=== PATIENT | male | born 1985 | race Hispanic/Latino ===

== ENCOUNTER → 2017-10-14 | Day surgery (SDC) | payer OTHER ==
[~2017-10-14] MED LIST: FENTANYL CITRATE/PF 100MCG/2 ML INJ ONE; MIDAZOLAM HCL 2 MG/2 ML VIAL ONE; NEXIUM PO; PENTASA500 MG PO; PROPOFOL IV EMULSION 10 MG/ML 50 ML VIAL ONE; TYLENOL 500 MG
--- NOTE | 2017-10-14 14:20 | Operative Report ---
DATE OF PROCEDURE: October 14, 2017 PROCEDURE PERFORMED: Esophagogastroduodenoscopy. INDICATIONS FOR EGD: Dysphagia to solids. MEDICATION: Patient was done under MAC. Please see anesthesiologist's note. PROCEDURE: With the patient in the left lateral decubitus position, the flexible fiberoptic Olympus gastroscope was introduced into the esophagus under direct visualization without any difficulty. There were some diffuse ulcerations noted in the distal esophagus. There was a mild stricture noted at the GE junction and that was dilated to a size 48-Honduran Hampton and biopsied. The scope was then advanced with ease into the stomach, traversing a large approximately 6-cm hiatal hernia. Mucosa overlying the antrum and the body revealed some patchy erythema and low-grade to moderate edema, and biopsies were obtained and sent to stain for H. pylori. Pylorus was of normal contour and shape. It was intubated with ease, and the scope was advanced all the way to the 2nd portion of the duodenum. The scope was then withdrawn slowly. Mucosa overlying the proximal 2nd portion and the duodenal bulb appeared to be within normal limits. The scope was then withdrawn back into the stomach and retroflexed. The mucosa overlying the fundus appeared to be within normal limits. The previously described hiatal hernia was also noted in the retroflexed position. The scope was then straightened out. It was subsequently withdrawn. Patient tolerated the procedure well. IMPRESSION 1. Ulcerated distal esophagus. 2. Stricture at gastroesophageal junction dilated to size 48-Honduran Hampton. 3. Approximately 6-cm hiatal hernia. 4. Gastritis, biopsied. Biopsies sent to stain for H. pylori. PLAN: Follow up histology. Initiate Protonix 40 mg 1 p.o. q.a.m. a.c. Job#: [id number]
== END | disposition home or self-care (01) ==
LOC: OR 08:46
PROVIDERS: ATTEND Internal Medicine Gastroenterology
DX: K22.2 Esophageal obstruction (principal); K29.70 Gastritis, unspecified, without bleeding; K22.10 Ulcer of esophagus without bleeding; K21.0 Gastro-esophageal reflux disease with esophagitis; K44.9 Diaphragmatic hernia without obstruction or gangrene; R03.0 Elevated blood-pressure reading, without diagnosis of hypertension; F17.210 Nicotine dependence, cigarettes, uncomplicated; Z68.32 Body mass index [BMI] 32.0-32.9, adult
CPT/HCPCS: 43239; 43450; J2250

== ENCOUNTER → 2017-12-23 | Outpatient (CLI) | payer OTHER ==
[~2017-12-23] MED LIST changes: -FENTANYL CITRATE/PF 100MCG/2 ML INJ ONE; -MIDAZOLAM HCL 2 MG/2 ML VIAL ONE; -PROPOFOL IV EMULSION 10 MG/ML 50 ML VIAL ONE; +SINCALIDE 3 MCG/VIAL INJ ONE
--- NOTE | 2017-12-23 14:08 | Diagnostic Imaging Report ---
PROCEDURE:US GALLBLADDER COMPARISON:CT, CT ABDOMEN/PELVIS W, 05/14/2016, 8:29. INDICATIONS:RUQ Pain FINDINGS: LIVER: Size:17.1 cm in the right mid clavicular line, mildly enlarged. Appearance:Increased echogenicity, smooth contour Mass:No focal masses GALLBLADDER: Stones/Sludge:None Appearance:No wall thickening, pericholecystic fluid or hydrops. Sonographic Roman's Sign:Negative BILE DUCTS: Intrahepatic Ducts:No dilation Extrahepatic Ducts:Common bile duct measures 0.4 cm, no dilatation. PANCREAS: Visualized portions of the neck and proximal body are normal. RIGHT KIDNEY: Size:9.9 cm in length Echogenicity:Normal Collecting System:No hydronephrosis Stone:None Cyst/Mass:None VESSELS: Aorta: Suboptimally visualized. Inferior Vena Cava:Suboptimally visualized. Main Portal Vein:1.2 cm, normal size with hepatopedal flow. FREE FLUID: No ascites or pleural effusions. CONCLUSION: Hepatic steatosis and mild hepatomegaly. Baron Lambert M.D. Dictated by: Baron Lambert M.D. on 12/23/2017 at 14:09 Electronically approved by: Baron Lambert M.D. on 12/23/2017 at 14:09
--- NOTE | 2017-12-23 19:20 | Diagnostic Imaging Report ---
Hepatobiliary Scan with Gallbladder Ejection Fraction Clinical information: 32 F with chronic RUQ abdominal pain x 1 year Technique: Following intravenous administration of 7 millicuries of Tc-99m mebrofenin, dynamic images of the abdomen in the anterior projection were obtained through 35 minutes. Sincalide (CCK analog) 2.8 micrograms was administered intravenously over 30 minutes with additional imaging for determination of gallbladder ejection fraction. Discussion: Perfusion of the liver is normal. Extraction of tracer by the liver parenchyma is normal. Tracer appears promptly within the biliary tract. The gallbladder begins to fill by 10 minutes post injection of tracer and fills adequately. Tracer is seen in the small bowel during the sincalide infusion. The gallbladder ejection fraction with sincalide is 7% (normal greater than 40%). Impression: 1. Filling of the gallbladder excludes acute cystic duct obstruction/acute cholecystitis. 2. The decreased gallbladder ejection fraction of 7% supports the clinical diagnosis of chronic cholecystitis/gallbladder dyskinesia. Signed by: Dr. Gregoria Copeland M.D. on 12/23/2017 7:16 PM
== END ==
LOC: US 12:52
PROVIDERS: ATTEND Internal Medicine Gastroenterology
DX: R10.11 Right upper quadrant pain (principal)
CPT/HCPCS: 76705; 78227; A9537; J2805

== ENCOUNTER → 2018-01-29 | Outpatient (CLI) | payer OTHER ==
[~2018-01-29] MED LIST changes: +DIATRIZOATE MEGL/DIATRIZOA SOD 30 ML BTL PO ONE; +IOPAMIDOL 370 MG/ML 200 ML INFUS..BTL INJ ONE; -SINCALIDE 3 MCG/VIAL INJ ONE; +SODIUM CHLORIDE 0.9% 50ML 50 ML ONE
[2018-01-29 13:39] LABS: ALANINE AMINOTRANSFERASE 21 IU/L (0-55); ALBUMIN 4.4 g/dL (3.5-5.0); ALBUMIN/GLOBULIN RATIO 1.5 (0.8-2.0); ALKALINE PHOSPHATASE 62 IU/L (40-150); ANION GAP 13.4 mmol/L (8-16); BLOOD UREA NITROGEN 16 mg/dL (7-26); BUN/CREATININE RATIO 13 (6-25); CALCIUM 9.8 mg/dL (8.4-10.2); CARBON DIOXIDE 27 mmol/L (22-29); CHLORIDE 105 mmol/L (98-107); CREATININE, SERUM 1.19 mg/dL (0.72-1.25); EST GLOMERULAR FILTRATION RATE > 60 ML/MIN (60-); GLUCOSE 87 mg/dL (74-118); POTASSIUM 4.4 mmol/L (3.5-5.1); SODIUM 141 mmol/L (136-145)
[2018-01-29 13:39] LABS: BASOPHILS # (AUTO) 0.1 (0.0-0.1); BASOPHILS % 1.8 % (0.0-1.0); EOSINOPHILS # (AUTO) 0.2 (0.0-0.4); EOSINOPHILS % 3.5 % (0.0-6.0); HEMATOCRIT 42.1 % (38.2-49.6); HEMOGLOBIN 14.4 g/dL (14.0-18.0); LYMPHOCYTES % 43.9 % (18.0-39.1); MEAN CORPUSCULAR HEMOGLOBIN 32.1 pg (28-32); MEAN CORPUSCULAR HGB CONC 34.2 g/dL (31-35); MONOCYTES # (AUTO) 0.6 (0.2-0.8); MONOCYTES % 8.1 % (4.4-11.3); NEUTROPHILS # (AUTO) 2.9 (2.1-6.9); NEUTROPHILS % 42.4 % (38.7-80.0); PLATELET COUNT 271 x10e3/uL (140-360); RED BLOOD COUNT 4.48 x10e6/uL (4.3-5.7); RED CELL DISTRIBUTION WIDTH 13.4 % (11.7-14.4)
--- NOTE | 2018-01-29 15:08 | Diagnostic Imaging Report ---
EXAM: CT Abdomen and Pelvis WITH contrast INDICATION: \[id number] \S\1410 \S\BILIARY DYSKINESA COMPARISON: CT dated 05/14/2016 TECHNIQUE: Abdomen and pelvis were scanned utilizing a multidetector helical scanner from the lung base to the pubic symphysis after administration of IV contrast. Coronal and sagittal reformations were obtained. Routine protocol was performed. Scan was performed when during portal venous phase. IV CONTRAST: 100 mL of Isovue-370 ORAL CONTRAST: Gastroview COMPLICATIONS: None RADIATION DOSE: Total DLP: 767.36 mGy*cm Estimated effective dose: (DLP x 0.015 x size factor) mSv CTDIvol has been reviewed. It is below the limits set by the Radiation Protocol Committee (RPC). FINDINGS: LINES and TUBES: None. LOWER THORAX: Unremarkable. Mild dependent atelectasis. HEPATOBILIARY: No focal hepatic lesions. No biliary ductal dilation. GALLBLADDER: No radio-opaque stones or sludge. No wall thickening. SPLEEN: No splenomegaly. PANCREAS: No focal masses or ductal dilatation. ADRENALS: No adrenal nodules KIDNEYS/URETERS: Kidneys enhance symmetrically. No hydronephrosis. No cystic or solid mass lesions. No stones. GI TRACT: No abnormal distention, wall thickening, or evidence of bowel obstruction. Appendix is normal. Small hiatal hernia. PELVIC ORGANS/BLADDER: Unremarkable. LYMPH NODES: Increased number of subcentimeter right lower quadrant mesenteric lymph nodes, measuring up to 0.9 cm (series 301, image 54). Nonspecific 1.1 cm gastrohepatic lymph node (series 2, image 21). VESSELS: Unremarkable. PERITONEUM / RETROPERITONEUM: No free air or fluid. BONES: Unremarkable. SOFT TISSUES: Unremarkable. IMPRESSION: 1. Increased number of subcentimeter right lower quadrant mesenteric lymph nodes, suspicious for mesenteric adenitis in the appropriate clinical setting. Otherwise, no acute inflammatory process in the abdomen/pelvis. 2. Normal appendix. 3. Small hiatal hernia. Signed by: Dr. Frankie Singh MD on 01/29/2018 3:04 PM
== END ==
LOC: CT 12:45
PROVIDERS: ATTEND Surgery
DX: K82.8 Other specified diseases of gallbladder (principal)
CPT/HCPCS: 36415; 74177; 80053; 85025; 93005; Q9967

== ENCOUNTER → 2018-01-31 | Day surgery (SDC) | payer OTHER ==
[~2018-01-31] MED LIST changes: +BUPIVACAINE 0.25%/EPI 30ML SDV INJ ONE; +DEXAMETHASONE SOD PHOS INJ 4 MG/ML VIAL ONE; -DIATRIZOATE MEGL/DIATRIZOA SOD 30 ML BTL PO ONE; +FENTANYL CITRATE/PF 100MCG/2 ML INJ ONE; +GLYCOPYRROLATE INJ 1MG/ 5 ML SYR ONE; +HYDROCODONE/APAP 7.5MG-325MG 1 EA TAB ONE; -IOPAMIDOL 370 MG/ML 200 ML INFUS..BTL INJ ONE; +LIDOCAINE HCL 2% LOCAL INJ 5 ML SDV VIAL INJ ONE; +MIDAZOLAM HCL 2 MG/2 ML VIAL ONE; +NEOSTIGMINE 5 MG/5ML SYR ONE; +ONDANSETRON HCL INJ 2 MG/ML VIAL ONE; +PROPOFOL IV EMULSION 10 MG/ML 20 ML VIAL ONE; +ROCURONIUM BROMIDE 10 MG/ML 5ML VIAL ONE; +SEVOFLURANE INHAL SOLN 250 ML PEN BTL ONE; -SODIUM CHLORIDE 0.9% 50ML 50 ML ONE
--- OUTSIDE RECORDS SUMMARY | 2018-01-31 06:34 | XMS REPORT ---
Author Author [facility] Organization [facility] Address Unknown Phone Unavailable Care Team Providers Care Tool Profiling Machine Set Up Operator Name Role Phone ERMELINDA MIXON Unavailable Unavailable NIRU REY Unavailable Unavailable Problems This patient has no known problems. Allergies, Adverse Reactions, Alerts This patient has no known allergies or adverse reactions. Medications This patient has no known medications. Results Test Description Test Time Test Comments Text Results Atomic Results Result Comments CT ABDOMEN/PELVIS W 2018-01-29 14:56:00 [place] [address] Patient Name: SHARI ROCHE MR #: [id number] : 1985 Age/Sex: 32/M Req #: [id number] Adm Physician: Ordered by: ERMELINDA MIXON MD Report #: [id number] Location: CT Room/Bed: Procedure: [id number] CT/CT ABDOMEN/PELVIS W Exam Date: Exam Time: 1410 REPORT STATUS: Signed EXAM: CT Abdomen and Pelvis WITH contrast INDICATION: COMPARISON: CT dated 05/14/2016 TECHNIQUE: Abdomen and pelvis were scanned utilizing a multidetector helical scanner from the lung base to the pubic symphysis after administration of IV contrast. Coronal and sagittal reformations were obtained. Routine protocol was performed. Scan was performed when during portal venous phase. IV CONTRAST: 100 mL of Isovue-370 ORAL CONTRAST: Gastroview COMPLICATIONS: None RADIATION DOSE: Total DLP: 767.36 mGy*cm Estimated effective dose: (DLP x 0.015 x size factor) mSv CTDIvol has been reviewed. It is below the limits set by the Radiation Protocol Committee (RPC) . FINDINGS: LINES and TUBES: None. LOWER THORAX: Unremarkable. Mild dependent atelectasis. HEPATOBILIARY: No focal hepatic lesions. No biliary ductal dilation. GALLBLADDER: No radio-opaque stones or sludge. No wall thickening. SPLEEN: No splenomegaly. PANCREAS: No focal masses or ductal dilatation. ADRENALS: No adrenal nodules KIDNEYS/URETERS: Kidneys enhance symmetrically. No hydronephrosis. No cystic or solid mass lesions. No stones. GI TRACT: No abnormal distention, wall thickening, or evidence of bowel obstruction. Appendix is normal. Small hiatal hernia. PELVIC ORGANS/BLADDER: Unremarkable. LYMPH NODES: Increased number of subcentimeter right lower quadrant mesenteric lymph nodes , measuring up to 0.9 cm (series 301, image 54). Nonspecific 1.1 cm gastrohepatic lymph node (series 2, image 21). VESSELS: Unremarkable. PERITONEUM / RETROPERITONEUM: No free air or fluid. BONES: Unremarkable. SOFT TISSUES: Unremarkable. IMPRESSION: 1. Increased number of subcentimeter right lower quadrant mesenteric lymph nodes, suspicious for mesenteric adenitis in the appropriate clinical setting. Otherwise, no acute inflammatory process in the abdomen/pelvis. 2. Normal appendix. 3. Small hiatal hernia. Signed by: Dr. Frankie Bird MD on 01/29/2018 3:04 PM Dictated By: FRANKIE BIRD MD [id number] Transcribed By: ANSHU on 01/29/18 150 COPY TO: ERMELINDA MIXON MD HEPTOBILIARY W PHARM [place] [address] Patient Name: SHARI ROCHE MR #: [id number] : 1985 Age/Sex: 32/M Req #: [id number] Adm Physician: Ordered by: NIRU REY MD Report #: [id number] Location: US Room/Bed: Procedure: [id number] NM/HEPTOBILIARY W PHARM Exam Date: 12/23/17 Exam Time: 1345 REPORT STATUS: Signed Hepatobiliary Scan with Gallbladder Ejection Fraction Clinical information: 32 F with chronic RUQ abdominal pain x 1 year Technique: Following intravenous administration of 7 millicuries of Tc-99m mebrofenin, dynamic images of the abdomen in the anterior projection were obtained through 35 minutes. Sincalide (CCK analog) 2.8 micrograms was administered intravenously over 30 minutes with additional imaging for determination of gallbladder ejection fraction. Discussion: Perfusion of the liver is normal. Extraction of tracer by the liver parenchyma is normal. Tracer appears promptly within the biliary tract. The gallbladder begins to fill by 10 minutes post injection of tracer and fills adequately. Tracer is seen in the small bowel during the sincalide infusion. The gallbladder ejection fraction with sincalide is 7% ( normal greater than 40%). Impression: 1. Filling of the gallbladder excludes acute cystic duct obstruction/acute cholecystitis. 2. The decreased gallbladder ejection fraction of 7% supports the clinical diagnosis of chronic cholecystitis/gallbladder dyskinesia. Signed by: Dr. Yovany Copeland M.D. on 12/23/2017 7:16 PM Dictated By: YOVANY COPELAND MD 15 Transcribed By: ANSHU on 12/23/171915 COPY TO: NIRU REY MD [place] [address] Patient Name: SHARI ROCHE MR #: [id number] : 1985 Age/Sex: 32/M Req #: [id number] Adm Physician: Ordered by: NIRU REY MD Report #: [id number] Location: US Room/Bed: Procedure: [id number] US/US GALLBLADDER Exam Date: Exam Time: REPORT STATUS: Signed PROCEDURE: US GALLBLADDER COMPARISON: CT, CT ABDOMEN/PELVIS W, 05/14/2016, 8:29. INDICATIONS: RUQ Pain FINDINGS: LIVER: Size: 17.1 cm in the right mid clavicular line, mildly enlarged. Appearance: Increased echogenicity, smooth contour Mass: No focal masses GALLBLADDER: Stones/Sludge: None Appearance: No wall thickening, pericholecystic fluid or hydrops. Sonographic Roman's Sign: Negative BILE DUCTS: Intrahepatic Ducts: No dilation Extrahepatic Ducts: Common bile duct measures 0.4 cm, no dilatation. PANCREAS: Visualized portions of the neck and proximal body are normal. RIGHT KIDNEY: Size: 9.9 cm in length Echogenicity: Normal Collecting System: No hydronephrosis Stone: None Cyst/Mass: None VESSELS: Aorta: Suboptimally visualized. Inferior Vena Cava: Suboptimally visualized. Main Portal Vein: 1.2 cm, normal size with hepatopedal flow. FREE FLUID: No ascites or pleural effusions. CONCLUSION: Hepatic steatosis and mild hepatomegaly. Baron Cedeno M.D. Dictated by: Baron Cedeno M.D. on 2017 at 14:09 Electronically approved by: Baron Cedeno M.D. on 12/23/2017 at 14:09 Dictated By: PAYAM CEDENO MD, MD 08 Transcribed By : SIVAKUMAR on 12/23/171408 COPY TO: NIRU REY MD
--- NOTE | 2018-01-31 11:20 | Operative Report ---
DATE OF PROCEDURE: January 31, 2018 PREOPERATIVE DIAGNOSIS: Biliary dyskinesia, right upper quadrant pain. POSTOPERATIVE DIAGNOSIS: Biliary dyskinesia, right upper quadrant pain. PROCEDURE PERFORMED: Laparoscopic cholecystectomy. ANESTHESIA: General endotracheal. HEAD SUGAR REPROCESS OPERATOR: FRANCISCO JAVIER Hunter ESTIMATED BLOOD LOSS: Minimal. DRAINS: None. COMPLICATIONS: None. INDICATIONS AND FINDINGS: This patient is a 32-year-old male who complains of epigastric pain and right upper quadrant pain for several weeks. He had no gallstones but an abnormal EF of 7% by HIDA scan. The pain is associated with fatty food intolerance. He has a history of hiatal hernia and reflux. Recent EGD revealed that. Preoperatively, the patient had a CT scan of the abdomen that revealed no acute process. INTRAOPERATIVE FINDINGS: No cholelithiasis. The gallbladder contained multiple adhesions of the peritoneal fat and peritoneum and omentum to it. There were significant inflammatory changes and adhesions covering the gallbladder, but all of those were flimsy. The cystic duct was identified, and it was not dilated. All of this is consistent with biliary dyskinesia and chronic acalculous cholecystitis. The liver did now show any evidence of cirrhosis or fatty liver infiltration. DESCRIPTION OF PROCEDURE: With the patient lying on the operative table in the supine position, after administration of general anesthesia, he was prepped and draped for laparoscopic cholecystectomy. The procedure was begun by establishing a pneumoperitoneum in the umbilical site after a stab wound was made in that location and the saline drop test was performed. Pneumoperitoneum was insufflated to 15 mm of pressure. Then the 10-11 trocar was placed in that location. The patient was then rotated to the left and with the head up, and we placed a 10-mm subxiphoid port. Finally, we placed 2 lateral working ports, 5 mm each, in the right mid-clavicular line and right anterior axillary line. The gallbladder was retracted cephalad using grasping forceps through the two 5-mm trocars, and then we began the dissection. The gallbladder was covered with some omentum and flimsy adhesions in its entirety. We lysed those until we were able to expose the wall of the gallbladder. As previously stated, the gallbladder was entirely covered by the adhesions. The gallbladder was also rather long. We continued the dissection until we cleared the gallbladder and identified the cystic duct as well as the junction with the common bile duct. At this point, the cystic duct was found to be nondilated. We then clipped the cystic duct distally 3 times and once proximal and then transected it. Then the cystic artery was transected between titanium clips also. Then we took the gallbladder down from the liver bed using electrocautery dissection. The gallbladder was detached and removed through the umbilical port. We inspected the operative field. There was no bleeding coming from the gallbladder bed fossa. At this point then, we released the pneumoperitoneum after aspirating all the fluid from the right upper quadrant and gallbladder bed fossa. We then closed the wounds using #0 Vicryl for the umbilical fascia, 3-0 Vicryl for the subcutaneous tissue in that location as well as the subxiphoid port, and the skin of all the ports was closed using leroy. Marcaine 0.25% with epinephrine was given as local block at the end of the case in all the port sites. The patient tolerated the procedure well and was taken to the recovery room in stable condition. Job#: [id number]
== END | disposition home or self-care (01) ==
LOC: OR 06:31
PROVIDERS: ATTEND Surgery
DX: K81.1 Chronic cholecystitis (principal); K82.8 Other specified diseases of gallbladder; K21.9 Gastro-esophageal reflux disease without esophagitis; K58.9 Irritable bowel syndrome, unspecified; Z87.891 Personal history of nicotine dependence
CPT/HCPCS: 47562; 88304; C1766; J1100; J2001; J2250; J2405; J3490

== ENCOUNTER → 2019-01-14 | Day surgery (SDC) | payer OTHER ==
[~2019-01-14] MED LIST changes: -BUPIVACAINE 0.25%/EPI 30ML SDV INJ ONE; -DEXAMETHASONE SOD PHOS INJ 4 MG/ML VIAL ONE; -GLYCOPYRROLATE INJ 1MG/ 5 ML SYR ONE; -HYDROCODONE/APAP 7.5MG-325MG 1 EA TAB ONE; +HYOSCYAMINE SULFATE 0.5 MG/ML INJ ONE; -LIDOCAINE HCL 2% LOCAL INJ 5 ML SDV VIAL INJ ONE; +METOCLOPRAMIDE HCL 10 MG/2ML VIAL ONE; -NEOSTIGMINE 5 MG/5ML SYR ONE; -ONDANSETRON HCL INJ 2 MG/ML VIAL ONE; +PANTOPRAZOLE SO40 MG PO; -PROPOFOL IV EMULSION 10 MG/ML 20 ML VIAL ONE; +PROPOFOL IV EMULSION 10 MG/ML 50 ML VIAL ONE; -ROCURONIUM BROMIDE 10 MG/ML 5ML VIAL ONE; -SEVOFLURANE INHAL SOLN 250 ML PEN BTL ONE
--- OUTSIDE RECORDS SUMMARY | 2019-01-14 06:13 | XMS REPORT | Clinical Summary ---
Author Author [facility] Organization [facility] Address Unknown Phone Unavailable Care Team Providers Care Production Assistant Name Role Phone Asked, No Pcp PCP Unavailable Allergies No Known Allergies Medications End Date Status Medication Sig Dispensed Refills Start Date 09/27/2018 cyclobenzaprine Take 1-2 10 tablet 0 (FLEXERIL) 5 mg tablet tablets (5-10 9 mg total) by mouth 2 (two) times a day as needed for muscle spasms (chest wall strain) for up to 5 days. Active Problems Not on file Encounters Care Team Description Date Type Specialty Ej Alfaro MD Left-sided chest wall pain (Primary Dx) 09/22/2018 Emergency Emergency Medicine after 01/13/2018 Social History Date Tobacco Use Types Packs/Day Years Used Never Assessed Sex Assigned at Date Recorded Not on file Industry Job Start Date Occupation Not on file Not on file Not on file Travel End Travel History Travel Start No recent travel history available. Last Filed Vital Signs Time Taken Vital Sign Reading 09/22/2018 3:35 PM [employer] [facility] Blood Pressure 138/77 09/22/2018 3:35 PM [employer] Pulse 86 09/22/2018 11:40 AM [employer] Temperature 37.1 C (98.8 F) 09/22/2018 3:35 PM [employer] Respiratory Rate 19 09/22/2018 3:35 PM [employer] Oxygen Saturation 99% - Inhaled Oxygen - Concentration - Weight - - Height - - Body Mass Index - Plan of Treatment Health Maintenance Due Date Last Done Comments INFLUENZA VACCINE 03/26/2019 Procedures Comments Procedure Name Priority Date/Time Associated Diagnosis XR CHEST 2 VW STAT 09/22/2018 3:13 PM [employer] ESTIMATED GFR STAT 09/22/2018 11:44 AM [employer] B NATRIURETIC PEPTIDE STAT 09/22/2018 11:44 AM [employer] TROPONIN STAT 09/22/2018 11:44 AM [employer] COMPREHENSIVE METABOLIC STAT 09/22/2018 PANEL 11:44 AM [employer] HC COMPLETE BLD COUNT STAT 09/22/2018 W/AUTO DIFF 11:44 AM [employer] ECG 12-LEAD STAT 09/22/2018 11:27 AM [employer] after 01/13/2018 Results * XR Chest 2 Vw (09/22/2018 3:13 PM [employer]) Specimen Narrative Performed At EXAMINATION: XR CHEST 2 VW RADIANT INDICATION: Chest painacutenonspecificlow prob CAD COMPARISON: None IMPRESSION: Low lung volumes. No pulmonary edema or acute airspace disease. No pleural effusion or pneumothorax. Normal cardiomediastinal silhouette. Right upper quadrant surgical clips. [id number] Procedure Note Hm Interface, Radiology Results Incoming - 09/22/2018 3:26 PM [employer] EXAMINATION: XR CHEST 2 VW INDICATION: Chest pain acute nonspecific low prob CAD COMPARISON: None IMPRESSION: Low lung volumes. No pulmonary edema or acute airspace disease. No pleural effusion or pneumothorax. Normal cardiomediastinal silhouette. Right upper quadrant surgical clips. [facility]-[id number] Performing Organization Address City/[facility]/Zipcode Phone Number [employer] [address] [place] [phone] * Estimated GFR (09/22/2018 11:44 AM [employer]) Estimated GFR 81 mL/min/1.73 m2 [facility] Comment: [facility] rpretation G1 >=90 Normal or high G2 60-89Mildly decreased [id number] Mildly to moderately decreased [id number] Moderately to severely decreased G4 15-29Severely decreased G5 <15Kidney failure The eGFR was calculated using the Chronic Kidney Disease Epidemiology Collaboration (CKD-EPI) equation. Interpretation is based on recommendations of the National Kidney Foundation-Kidney Disease Outcomes Quality Initiative (NKF-KDOQI) published in 2014. Specimen Plasma specimen Performing Organization Address City/State/Zipcode Phone Number [facility] OF [address] [place] [phone] PATHOLOGY AND GENOMIC MEDICINE [facility] [address] * Troponin (09/22/2018 11:44 AM [employer]) Troponin <0.30 0.00 - 0.30 ng/mL [facility] Comment: [facility] 0.30 - 1.49 HOSPITAL ng/mlMay indicate increased risk of acute coronary syndrome. >=1.5 ng/ml Consistent with acute myocardial infarction. The diagnostic value of a single normal or non-diagnostic result is questionable.Serial samples at 2-6 hour intervals are required to rule out acute myocardial injury. Specimen Plasma specimen Performing Organization Address City/[facility] Phone Number [facility] [address] [place] [address] PATHOLOGY AND GENOMIC MEDICINE [address] * CBC with platelet and differential (09/22/2018 11:44 AM [employer]) Pathologist [facility] WBC 5.96 4.50 - 11.00 k/uL [facility] RBC 4.53 4.40 - 6.00 m/uL [facility] HGB 14.7 14.0 - 18.0 g/dL [facility] HCT 44.8 41.0 - 51.0 % [facility] MCV 98.9 82.0 - 100.0 fL [facility] MCH 32.5 27.0 - 34.0 pg [facility] MCHC 32.8 31.0 - 37.0 g/dL [facility] RDW - SD 46.7 37.0 - 55.0 fL [facility] MPV 9.4 8.8 - 13.2 fL [facility] Platelet count 298 150 - 400 k/uL [facility] Nucleated RBC 0.00 /100 WBC [facility] Neutrophils 48.0 39.0 - 69.0 % [facility] Lymphocytes 40.1 25.0 - 45.0 % [facility] Monocytes 8.2 0.0 - 10.0 % [facility] Eosinophils 2.2 0.0 - 5.0 % [facility] Basophils 1.2 (H) 0.0 - 1.0 % [facility] Immature 0.3Comment: "Immature 0.0 - 1.0 % [facility] granulocytes granulocytes" (promyelocytes, [facility] myelocytes, metamyelocytes) HOSPITAL Specimen Blood Performing Organization Address City/[facility]/Zipcode Phone Number [facility] [address] [place] [phone] PATHOLOGY AND GENOMIC MEDICINE [address] * B natriuretic peptide (09/22/2018 11:44 AM [employer]) BNP 6 0 - 100 pg/mL [facility] Specimen Blood Performing Organization Address [facility] Phone Number [facility] [address] [address] PATHOLOGY AND GENOMIC MEDICINE [address] * Comprehensive metabolic panel (09/22/2018 11:44 AM [employer]) Sodium 141 135 - 148 mEq/L [facility] Potassium 4.1 3.5 - 5.0 mEq/L [facility] Chloride 105 98 - 112 mEq/L [facility] CO2 23 (L) 24 - 31 mEq/L [facility] Anion gap 13@ANIO 7 - 15 mEq/L [facility] BUN 14 6 - 20 mg/dL [facility] Creatinine 1.18 0.70 - 1.20 mg/dL [facility] Glucose 100 (H) 65 - 99 mg/dL [facility] Calcium 9.0 8.3 - 10.2 mg/dL [facility] Protein 7.2 6.3 - 8.3 g/dL [facility] Comment: [facility] 4.6-7.0 g/dL 1 week 4.4-7.6 g/dL 7 months-1year 5.1-7.3 g/dL 1-2 years5.6-7 .5 g/dL >3 years6.0-8 .0 g/dL 18-150 6.3-8.3 g/dL Albumin 4.2 3.5 - 5.0 g/dL [facility] A/G ratio 1.4 0.7 - 3.8 [facility] Alkaline 67 40 - 129 U/L [facility] phosphatase [facility] AST 17 10 - 50 U/L [facility] ALT 21 5 - 50 U/L [facility] Total bilirubin 0.5 0.0 - 1.2 mg/dL [facility] Specimen Plasma specimen Performing Organization Address City/[facility]/Zipcode Phone Number [facility] OF [address] [place] [phone] PATHOLOGY AND GENOMIC MEDICINE [facility] [address] [place] [address] HOSPITAL * ECG 12 lead (09/22/2018 11:27 AM [employer]) Ventricular 91 [facility] rate Atrial rate 91 [facility] W[place] interval 142 [facility] QRSD interval 94 [facility] QT interval 366 [facility] QTC interval 450 [facility] P axis 1 44 [facility] QRS axis 1 -18 [facility] T wave axis 5 [facility] EKG impression Normal sinus rhythm-Normal [facility] ECG-- Specimen Narrative Performed At Performing Organization Address City/State/Zipcode Phone Number [facility] [address] [place] [address] after 01/13/2018 Insurance Type Payer Benefit Subscriber ID Effective Phone Address Plan / Dates Group HMO/PPO [facility] xxxxxxxxx [id number] THCARE resent CHOICE/CHO ICE + Advance Directives Patient has advance care planning documents on file. For more information, fabien e contact: Matthew Chacon [address] [place] [phone]
--- OUTSIDE RECORDS SUMMARY | 2019-01-14 06:14 | XMS REPORT | Summary of Care ---
Author Author [facility] Organization [facility] Address Unknown Phone Unavailable Encounter JOSE ARMANDO Bowman(JAYASHREE) [id number] Date(s): 02/20/16 - 02/20/16 [facility] [address] [employer] provided by [facility] [employer] [place] [address]- Discharge Diagnosis: Abdominal pain Discharge Disposition: Home Attending Physician: Sravan Joseph MD Vital Signs Most recent to 1 2 oldest [Reference Range]: Height 175.26 cm (02/20/16 10:54 AM) Temperature Oral 98.0 DegF 98.0 DegF [96.4-99.1 DegF] (02/20/16 2:41 PM) (02/20/16 10:54 AM) Blood Pressure 144/86 mmHg 146/93 mmHg [90-140/60-90 mmHg] *HI* *HI* (02/20/16 2:41 PM) (02/20/16 10:54 AM) Respiratory Rate 18 BRMIN 18 BRMIN [14-20 BRMIN] (02/20/16 2:41 PM) (02/20/16 10:54 AM) Peripheral Pulse 77 bpm 79 bpm Rate [60-100 bpm] (02/20/16 2:41 PM) (02/20/16 10:54 AM) Weight 95.455 kg (02/20/16 10:54 AM) Body Mass Index 31.08 m2 (02/20/16 10:54 AM) Problem List No data available for this section Allergies, Adverse Reactions, Alerts Substance Reaction Severity Status NKDA Active Medications ondansetron 4 mg, 2 mL, Route: IVP, Drug form: INJ, ONCE, Dosing Weight 95.455, kg, Priority : STAT, Start date: 02/20/16 11:34:00 CDT, Stop date: 02/20/16 11:34:00 CDT Notes: (Same as: Zofran) MEDICATION WASTE Product Size: 4 mgProduct Was joey: ___ mg Start Date: 02/20/16 Stop Date: 02/20/16 Status: Ordered Sodium Chloride 0.9% (Bolus) IV 1,000 mL, 1,000 ml/hr, Infuse Over: 1 hr, Route: IV, 1,000, Drug form: INJ, ONCE , Priority: STAT, Dosing Weight 95.455 kg, Start date: 02/20/16 11:34:00 CDT, Du ration: 1 doses or times, Stop date: 02/20/16 11:34:00 CDT Start Date: 02/20/16 Stop Date: 02/20/16 Status: Completed Zofran ODT 4 mg oral tablet, disintegrating 4 mg=1 tab, PO, BID, PRN Nausea and Vomiting, Dissolve tab under tongue, X 5 day , # 10 tab, 0 Refill(s) Start Date: 02/20/16 Stop Date: 02/25/16 Status: Ordered Results ELECTROLYTES Most recent to 1 oldest [Reference Range]: Sodium Lvl [135-145 139 mEq/L mEq/L] (02/20/16 12:40 PM) Potassium Lvl 4.2 mEq/L [3.5-5.1 mEq/L] (02/20/16 12:40 PM) Chloride Lvl [95-109 104 mEq/L mEq/L] (02/20/16 12:40 PM) CO2 [24-32 mEq/L] 25 mEq/L (02/20/16 12:40 PM) AGAP [10.0-20.0 14.2 mEq/L mEq/L] (02/20/16 12:40 PM) CHEM PANEL Most recent to 1 oldest [Reference Range]: Creatinine Lvl 1.12 mg/dL [0.50-1.40 mg/dL] (02/20/16 12:40 PM) eGFR 88 mL/min/1.73m2 1 *NA* (02/20/16 12:40 PM) BUN [7-22 mg/dL] 16 mg/dL (02/20/16 12:40 PM) B/C Ratio [6-25] 14 (02/20/16 12:40 PM) Glucose Lvl [70-99 89 mg/dL mg/dL] (02/20/16 12:40 PM) Total Protein 7.8 g/dL [6.4-8.4 g/dL] (02/20/16 12:40 PM) Albumin Lvl [3.5-5.0 4.3 g/dL g/dL] (02/20/16 12:40 PM) Globulin [2.0-4.0 3.5 g/dL g/dL] (02/20/16 12:40 PM) A/G Ratio [0.7-1.6] 1.2 (02/20/16 12:40 PM) Calcium Lvl 9.0 mg/dL [8.5-10.5 mg/dL] (02/20/16 12:40 PM) ALT [0-65 unit/L] 26 unit/L (02/20/16 12:40 PM) AST [0-37 unit/L] 9 unit/L (02/20/16 12:40 PM) Alk Phos [39-136 61 unit/L unit/L] (02/20/16 12:40 PM) Bili Total [0.2-1.3 0.5 mg/dL mg/dL] (02/20/16 12:40 PM) Lipase Lvl [73-393 155 unit/L unit/L] (02/20/16 12:40 PM) 1Result Comment: The eGFR is calculated using the CKD-EPI formula. In most young, healthy individuals the eGFR will be >90 mL/min/1.73m2. The eGFR declines with age. An eGFR of 60-89 may be normal in some populations, particularly the elderly, for whom the CKD-EPI formula has not been extensively validated. Use of the eGFR is not recommended in the following populations: Individuals with unstable creatinine concentrations, including patients and those with serious co-morbid conditions. Patients with extremes in muscle mass or diet. The data above are obtained from the National Kidney Disease Education Program ( NKDEP) which additionally recommends that when the eGFR is used in patients with extremes of body mass index for purposes of drug dosing, the eGFR should be mul tiplied by the estimated BMI. URINE AND STOOL Most recent to 1 oldest [Reference Range]: UA Turbidity [Clear] Clear (02/20/16 12:40 PM) UA Color [Yellow] Yellow *NA* (02/20/16 12:40 PM) UA pH [5.0-8.0] 7.0 (02/20/16 12:40 PM) UA Spec Grav 1.020 [<=1.030] (02/20/16 12:40 PM) UA Glucose [Negative Negative mg/dL mg/dL] (02/20/16 12:40 PM) UA Blood [Negative] Negative (02/20/16 12:40 PM) UA Ketones [Negative Negative mg/dL mg/dL] *NA* (02/20/16 12:40 PM) UA Protein [Negative Negative mg/dL mg/dL] (02/20/16 12:40 PM) UA Urobilinogen 0.2 EU/dL [0.1-1.0 EU/dL] (02/20/16 12:40 PM) UA Bili [Negative] Negative *NA* (02/20/16 12:40 PM) UA Leuk Est Negative [Negative] (02/20/16 12:40 PM) UA Nitrite Negative [Negative] (02/20/16 12:40 PM) UA WBC [None Seen] None Seen (02/20/16 12:40 PM) UA RBC [0-2] None Seen (02/20/16 12:40 PM) UA Bacteria [None Occasional /HPF Seen /HPF] (02/20/16 12:40 PM) UA Sq Epi [Few /LPF] Rare /LPF (02/20/16 12:40 PM) UA Mucus [None Seen] None Seen (02/20/16 12:40 PM) Micro? Performed (02/20/16 12:40 PM) HEMATOLOGY Most recent to 1 oldest [Reference Range]: WBC [3.7-10.4 K/CMM] 6.5 K/CMM (02/20/16 12:40 PM) RBC [4.70-6.10 4.53 M/CMM M/CMM] *LOW* (02/20/16 12:40 PM) Hgb [14.0-18.0 g/dL] 14.7 g/dL (02/20/16 12:40 PM) Hct [42.0-54.0 %] 43.4 % (02/20/16 12:40 PM) MCV [80.0-94.0 fL] 95.7 fL *HI* (02/20/16 12:40 PM) MCH [27.0-31.0 pg] 32.4 pg *HI* (02/20/16 12:40 PM) MCHC [32.0-36.0 33.8 g/dL g/dL] (02/20/16 12:40 PM) RDW [11.5-14.5 %] 13.3 % (02/20/16 12:40 PM) Platelet [133-450 251 K/CMM K/CMM] (02/20/16 12:40 PM) MPV [7.4-10.4 fL] 8.2 fL (02/20/16 12:40 PM) Segs [45.0-75.0 %] 53.2 % (02/20/16 12:40 PM) Lymphocytes 36.1 % [20.0-40.0 %] (02/20/16 12:40 PM) Monocytes [2.0-12.0 7.3 % %] (02/20/16 12:40 PM) Eosinophils [0.0-4.0 2.1 % %] (02/20/16 12:40 PM) Basophils [0.0-1.0 1.3 % %] *HI* (02/20/16 12:40 PM) Segs-Bands # 3.5 K/CMM [1.5-8.1 K/CMM] (02/20/16 12:40 PM) Lymphocytes # 2.4 K/CMM [1.0-5.5 K/CMM] (02/20/16 12:40 PM) Monocytes # [0.0-0.8 0.5 K/CMM K/CMM] (02/20/16 12:40 PM) Eosinophils # 0.1 K/CMM [0.0-0.5 K/CMM] (02/20/16 12:40 PM) Basophils # [0.0-0.2 0.1 K/CMM K/CMM] (02/20/16 12:40 PM) Immunizations No data available for this section Procedures No data available for this section Social History Social History Type Response Smoking Status Former smoker; Exposure to Tobacco Smoke None; Cigarette Smoking Last 365 Days No; Reg Smoking Cessation Counseling No Assessment and Plan No data available for this section
--- OUTSIDE RECORDS SUMMARY | 2019-01-14 06:14 | XMS REPORT | Continuity of Care Document ---
Author Author Amilcar martin [facility] Interface Address Unknown Phone Unavailable Problems Problem Status Onset Date Classification Date Reported Comments Source Discharge Diagnosis: Abdominal pain 02/20/2016 02/23/2016 [facility] ABDOMINAL PAIN Active 02/20/2016 [facility] Medications Medication Details Route Status Patient Instructions Ordering Provider Order Date Source Ondansetron 4 MG Disintegrating Tablet [Zofran] 4 mg=1 tab, PO, BID, PRN Nausea and Vomiting, Dissolve tab under tongue, X 5 day, # 10 tab, 0 Refill(s) Active 02/20/2016 [facility] Sodium Chloride 0.154 MEQ/ML Injectable Solution 1,000 mL, 1,000 ml/hr, Infuse Over: 1 hr, Route: IV, 1,000, Drug form: INJ, ONCE, Priority: STAT, Dosing Weight 95.455 kg, Start date: 02/20/16 11:34:00 CDT, Duration: 1 doses or times, Stop date: 02/20/16 11:34:00 CDT Inactive 02/20/2016 [facility] Ondansetron 4 mg, 2 mL, Route: IVP, Drug form: INJ, ONCE, Dosing Weight 95.455, kg, Priority: STAT, Start date: 02/20/16 11:34:00 CDT, Stop date: 02/20/16 11:34:00 CDTNotes: (Same as: Zofran) MEDICATION WASTE Product Size: 4 mg Product Wasted: ___ mg Inactive 02/20/2016 [facility] Allergies, Adverse Reactions, Alerts Substance Category Reaction Severity Reaction type Status Date Reported Comments Source Immunizations Immunization Date Given Site Status Last Updated Comments Source Results Order Name Results Value Reference Range Date Interpretation Comments Source Abdomen complete US Abdomen complete US EXAM: Abdomen complete US HISTORY: R10.84 Generalized abdominal pain COMPARISON: None FINDINGS: Liver: Measures 16 cm in length (normal: 13-17 cm). Echogenicity is unremarkable. Portal vein is patent with hepatopedal flow. Biliary: No gallstones, gallbladder wall thickening, or sonographic Roman's sign. There is no biliary duct dilation. Mid common bile duct measures 4 mm in diameter. Pancreas: No focal lesion. However, certain portions are obscured by overlying bowel gas and unable to be evaluated. Spleen: Measures 10.7 cm in maximal dimension (normal < 13 cm). No focal lesion is seen. Kidneys: Right and left measure 10.4 and 10.1 cm in length, respectively (normal for age). No hydronephrosis, suspicious renal mass, or large shadowing stone. Vascular: Visualized portions of the IVC are patent. No obvious aneurysmal dilatation of the aorta. IMPRESSION: No significant abnormality. 02/23/2016 - - Read by: Howard Brush MD Dictated Date/time: 02/23/16 08:55 Electronically Signed by: Howard Brush MD 02/23/16 08:58 FINAL REPORT [facility] [place] CHEM PANEL Lipase Lvl 155 unit/L 73 - 393 02/20/2016 [facility] CHEM PANEL A/G Ratio 1.2 0.7 - 1.6 02/20/2016 [facility] CHEM PANEL Globulin 3.5 g/dL 2.0 - 4.0 02/20/2016 [facility] CHEM PANEL B/C Ratio 14 6 - 25 02/20/2016 [facility] CHEM PANEL AGAP 14.2 meq/L 10.0 - 20.0 02/20/2016 [facility] CHEM PANEL Alk Phos 61 unit/L 39 - 136 02/20/2016 [facility] CHEM PANEL AST 9 unit/L 0 - 37 02/20/2016 [facility] CHEM PANEL Bili Total 0.5 mg/dL 0.2 - 1.3 02/20/2016 [facility] CHEM PANEL Albumin Lvl 4.3 g/dL 3.5 - 5.0 02/20/2016 [facility] CHEM PANEL ALT 26 unit/L 0 - 65 02/20/2016 [facility] CHEM PANEL Total Protein 7.8 g/dL 6.4 - 8.4 02/20/2016 [facility] CHEM PANEL eGFR 88 mL/min/1.73m2 02/20/2016 Result Comment: The eGFR is calculated using the [...] from the National Kidney Disease Education Program (NKDEP) which additionally recommends that when the eGFR is used in patients with extremes of body mass index for purposes of drug dosing, the eGFR should be multiplied by the estimated BMI. [facility] CHEM PANEL Creatinine Lvl 1.12 mg/dL 0.50 - 1.40 02/20/2016 [facility] CHEM PANEL Sodium Lvl 139 meq/L 135 - 145 02/20/2016 [facility] CHEM PANEL Calcium Lvl 9.0 mg/dL 8.5 - 10.5 02/20/2016 [facility] CHEM PANEL Potassium Lvl 4.2 meq/L 3.5 - 5.1 02/20/2016 [facility] CHEM PANEL Chloride Lvl 104 meq/L 95 - 109 02/20/2016 [facility] CHEM PANEL CO2 25 meq/L 24 - 32 02/20/2016 [facility] CHEM PANEL BUN 16 mg/dL 7 - 22 02/20/2016 [facility] CHEM PANEL Glucose Lvl 89 mg/dL 70 - 99 02/20/2016 [facility] HEMATOLOGY Eosinophils 2.1 % 0.0 - 4.0 02/20/2016 [facility] HEMATOLOGY Basophils 1.3 % 0.0 - 1.0 02/20/2016 [facility] HEMATOLOGY Lymphocytes 36.1 % 20.0 - 40.0 02/20/2016 [facility] HEMATOLOGY Monocytes 7.3 % 2.0 - 12.0 02/20/2016 [facility] HEMATOLOGY Eosinophils # 0.1 K/CMM 0.0 - 0.5 02/20/2016 [facility] HEMATOLOGY Basophils # 0.1 K/CMM 0.0 - 0.2 02/20/2016 [facility] HEMATOLOGY Segs-Bands # 3.5 K/CMM 1.5 - 8.1 02/20/2016 [facility] HEMATOLOGY Monocytes # 0.5 K/CMM 0.0 - 0.8 02/20/2016 [facility] HEMATOLOGY Lymphocytes # 2.4 K/CMM 1.0 - 5.5 02/20/2016 [facility] HEMATOLOGY Segs 53.2 % 45.0 - 75.0 02/20/2016 [facility] HEMATOLOGY MCH 32.4 pg 27.0 - 31.0 02/20/2016 [facility] HEMATOLOGY MCHC 33.8 g/dL 32.0 - 36.0 02/20/2016 [facility] HEMATOLOGY Hgb 14.7 g/dL 14.0 - 18.0 02/20/2016 [facility] HEMATOLOGY Hct 43.4 % 42.0 - 54.0 02/20/2016 [facility] HEMATOLOGY MCV 95.7 fL 80.0 - 94.0 02/20/2016 [facility] HEMATOLOGY WBC 6.5 K/CMM 3.7 - 10.4 02/20/2016 [facility] HEMATOLOGY RBC 4.53 M/CMM 4.70 - 6.10 02/20/2016 [facility] HEMATOLOGY MPV 8.2 fL 7.4 - 10.4 02/20/2016 [facility] HEMATOLOGY Platelet 251 K/CMM 133 - 450 02/20/2016 [facility] HEMATOLOGY RDW 13.3 % 11.5 - 14.5 02/20/2016 [facility] URINE AND STOOL UA Blood Negative (02/20/16 12:40 PM) Negative 02/20/2016 [facility] URINE AND STOOL UA Bili Negative *NA* (02/20/16 12:40 PM) Negative 02/20/2016 [facility] URINE AND STOOL UA Glucose Negative mg/dL Negative mg/dL 02/20/2016 [facility] URINE AND STOOL UA pH 7.0 5.0 - 8.0 02/20/2016 [facility] URINE AND STOOL UA Protein Negative mg/dL Negative mg/dL 02/20/2016 [facility] URINE AND STOOL UA Spec Grav 1.020 <=1.030 02/20/2016 [facility] URINE AND STOOL UA Turbidity Clear (02/20/16 12:40 PM) Clear 02/20/2016 [facility] URINE AND STOOL UA Color Yellow *NA* (02/20/16 12:40 PM) Yellow 02/20/2016 [facility] URINE AND STOOL UA Leuk Est Negative (02/20/16 12:40 PM) Negative 02/20/2016 [facility] URINE AND STOOL UA Ketones Negative mg/dL Negative mg/dL 02/20/2016 [facility] URINE AND STOOL UA Nitrite Negative (02/20/16 12:40 PM) Negative 02/20/2016 [facility] URINE AND STOOL UA Urobilinogen 0.2 EU/dL 0.1 - 1.0 02/20/2016 [facility] URINE AND STOOL UA WBC None Seen (02/20/16 12:40 PM) None Seen 02/20/2016 [facility] URINE AND STOOL UA RBC None Seen (02/20/16 12:40 PM) 0 - 2 02/20/2016 [facility] URINE AND STOOL UA Sq Epi Rare /LPF Few /LPF 02/20/2016 [facility] URINE AND STOOL Micro? Performed (02/20/16 12:40 PM) 02/20/2016 [facility] URINE AND STOOL UA Bacteria Occasional /HPF None Seen /HPF 02/20/2016 [facility] URINE AND STOOL UA Mucus None Seen (02/20/16 12:40 PM) None Seen 02/20/2016 [facility] Vital Signs Vital Sign Value Date Comments Source Respitory Rate 18 02/20/2016 [facility] Systolic (mm Hg) 144 02/20/2016 [facility] Diastolic (mm Hg) 86 02/20/2016 [facility] Heart Rate 77 02/20/2016 [facility] Temperature Oral (F) 98.0 F 02/20/2016 [facility] Height 175.26 cm 02/20/2016 [facility] Temperature Oral (F) 98.0 F 02/20/2016 [facility] Weight 95.455 02/20/2016 [facility] BMI Calculated 31.08 02/20/2016 [facility] Respitory Rate 18 02/20/2016 [facility] Heart Rate 79 02/20/2016 [facility] Systolic (mm Hg) 146 02/20/2016 [facility] Diastolic (mm Hg) 93 02/20/2016 [facility] Encounters Location Location Details Encounter Type Encounter Number Reason For Visit Attending Provider ADM Date DC Date Status Source [facility] [id number] Sravan Joseph 02/20/2016 02/20/2016 [facility] [place] [facility] [id number] Sophie Garcia 02/23/2016 02/24/2016 VIVIENNE Maria Procedures Procedure Code Date Perfomer Comments Source
--- OUTSIDE RECORDS SUMMARY | 2019-01-14 06:14 | XMS REPORT | Summary of Care ---
Author Author [facility] [place] Organization [facility] [place] Address Unknown Phone Unavailable Encounter HQ Encntr_ezequiel(FIN) [id number] Date(s): 02/23/16 - 02/23/16 [facility] [place] [address] [place] [phone] Discharge Disposition: Home Attending Physician: Sophie Garcia MD Vital Signs No data available for this section Problem List No data available for this section Allergies, Adverse Reactions, Alerts Substance Reaction Severity Status NKDA Active Medications No data available for this section Results No data available for this section Immunizations No data available for this section Procedures No data available for this section Social History Social History Type Response Smoking Status Former smoker; Exposure to Tobacco Smoke None; Cigarette Smoking Last 365 Days No; Reg Smoking Cessation Counseling No Assessment and Plan No data available for this section
[2019-01-14 09:30] VITALS: BP 109/85
[2019-01-14 09:35] LABS: WBC,FECAL (FECAL LACTOFERRIN) NEGATIVE (NEGATIVE)
--- NOTE | 2019-01-14 12:59 | Operative Report ---
DATE OF PROCEDURE: 01/14/2019 SURGEON: Pb Lora MD PROCEDURES: 1. Esophagogastroduodenoscopy with esophageal dilatation and biopsies. 2. Colonoscopy with polypectomy and biopsies. INDICATIONS FOR EGD: Heartburn, dysphagia to solids. INDICATIONS FOR COLONOSCOPY: Lower abdominal pain, diarrhea, and history of bright red blood per rectum. MEDICATIONS: The patient was done under MAC, please see anesthesiologist's note. PROCEDURE IN DETAIL: With the patient in left lateral decubitus position, a flexible fiberoptic Olympus gastroscope was introduced into the esophagus under direct visualization without any difficulty. There were some erosions noted in the distal esophagus. The GE junction was nodular and strictured and biopsies were obtained and was dilated to size 52-Armenian [place]. The scope was then advanced with ease into the stomach traversing an approximately 6 cm hiatal hernia. Mucosa overlying the antrum and the body revealed some patchy erythema and [id number] edema and biopsies were repeat. Mucosa overlying the antrum and the body revealed some patchy erythema. The pylorus was of normal contour and shape, it was intubated with ease and the scope was advanced all the way to the second portion of the duodenum. The scope was then withdrawn slowly and biopsies were obtained from the proximal second portion as well as the duodenal bulb to rule out sprue. Minute nodules were noted in the duodenal bulb and those were biopsied. The scope was then withdrawn back into the stomach and retroflexed in the previously described hiatal hernia, was also noted in the retroflexed position. The fundus appeared to be within normal limits. The scope was then straightened out, it was subsequently withdrawn. The patient tolerated the procedure well. IMPRESSION: 1. Distal erosive esophagitis. 2. Esophageal stricture at gastroesophageal junction, nodular, biopsied and dilated to size 52-Armenian Hampton. 3. Hiatal hernia 6 cm. 4. Gastritis, mild. 5. Duodenal bulb, nodules, biopsied. 6. Rule out sprue. PLAN: Follow up histology. Increase Protonix to 40 mg one p.o. a.c. b.i.d. The patient was then turned around. After adequate lubrication of the anal canal, a flexible fiberoptic Olympus colonoscope was inserted into the rectum with ease and advanced all the way to the cecum. Mucosa overlying the cecum appeared to be within normal limits. The ileocecal valve was intubated and the scope was advanced into the terminal ileum. Biopsies were obtained. The scope was then withdrawn back into the colon. It was then withdrawn slowly. Mucosa overlying the ascending and the transverse grossly appeared to be within normal limits. Mucosa overlying the descending, sigmoid, and rectum revealed some patchy mild inflammatory changes and random biopsies were obtained. One polyp was hot biopsied from the sigmoid. Three polyps were hot biopsied from the rectum. The scope was then retroflexed into the distal rectum and small internal hemorrhoids were noted, none of which was actively bleeding. The scope was then straightened out, it was subsequently withdrawn after securing an adequate stool specimen that was sent for the appropriate stool studies. The patient tolerated the procedure well. IMPRESSION: 1. Patchy mild left-sided colitis. 2. Sigmoid colon polyp, hot biopsied. 3. Rectal polyps x3, hot biopsied. 4. Small internal hemorrhoids, none actively bleeding. PLAN: Follow up histology. Follow up stool studies. Initiate Bentyl 20 mg one p.o. t.i.d. and check IBD panel, CRP, and sedimentation rate. The patient might benefit from a followup colonoscopy in 5-10 years. MD MARTITA Estrada/TREV /[id number]
[2019-01-14 14:49] LABS: C DIFFICILE TOXIN A&B AMP PROB NEGATIVE (NEGATIVE)
--- NOTE | 2019-01-15 07:10 | NUR ---
SPIRITUAL CARE - Pre-Surgery Assessment: Pt in bed. Pt's at bedside. Pt reported supportive attention from family and friends. Intervention: I provided pastoral presence, hospitality, and sympathetic listening. I acquainted pt with availability of patrol officer while hospitalized. Outcome: Pt expressed appreciation for visit. No need for follow up indicated at this time. ANGELA [facility] Spiritual Care Department O: [phone] Pager: [phone] ([phone])
== END | disposition home or self-care (01) ==
LOC: OR 06:00
PROVIDERS: ATTEND Internal Medicine Gastroenterology
DX: K44.9 Diaphragmatic hernia without obstruction or gangrene (principal); K63.5 Polyp of colon; K62.1 Rectal polyp; K29.70 Gastritis, unspecified, without bleeding; K22.2 Esophageal obstruction; K51.50 Left sided colitis without complications; Q40.8 Other specified congenital malformations of upper alimentary tract; K21.0 Gastro-esophageal reflux disease with esophagitis; K22.10 Ulcer of esophagus without bleeding; K21.9 Gastro-esophageal reflux disease without esophagitis; K64.8 Other hemorrhoids
CPT/HCPCS: 36415; 43239; 45380; 45384; 83630; 83993; 85651; 86140; 86256; 86671; 87045; 87177; 87328; 87493; J1980; J2250; J2704; J2765; 43450; 45378

== ENCOUNTER 2022-05-08 10:01 | Emergency (ER) | payer OTHER ==
[~2022-05-08] VITALS: Ht 175.3 cm; Wt 94.3 kg
[~2022-05-08 10:01] MED LIST changes: -FENTANYL CITRATE/PF 100MCG/2 ML INJ ONE; -HYOSCYAMINE SULFATE 0.5 MG/ML INJ ONE; -METOCLOPRAMIDE HCL 10 MG/2ML VIAL ONE; -MIDAZOLAM HCL 2 MG/2 ML VIAL ONE; -PROPOFOL IV EMULSION 10 MG/ML 50 ML VIAL ONE
[2022-05-08] MEDS ORDERED: KETOROLAC TROMETHAMINE 30 MG/ML VIAL IV STA (10:38)
[2022-05-08] MEDS ORDERED: SODIUM CHLORIDE 0.9% 1000ML 1,000 ML IV STA (10:38)
[2022-05-08 10:56] LABS: BASOPHILS # (AUTO) 0.1 (0.0-0.1); BASOPHILS % 1.4 % (0.0-1.0); EOSINOPHILS # (AUTO) 0.1 (0.0-0.4); EOSINOPHILS % 2.1 % (0.0-6.0); HEMATOCRIT 46.1 % (38.2-49.6); HEMOGLOBIN 15.4 g/dL (14.0-18.0); LYMPHOCYTES # (AUTO) 1.9 (1.0-3.2); LYMPHOCYTES % 39.2 % (18.0-39.1); MEAN CORPUSCULAR HEMOGLOBIN 33.1 pg (28-32); MEAN CORPUSCULAR HGB CONC 33.4 g/dL (31-35); MEAN CORPUSCULAR VOLUME 99.1 fL (81-99); MONOCYTES # (AUTO) 0.4 (0.2-0.8); MONOCYTES % 7.8 % (4.4-11.3); NEUTROPHILS # (AUTO) 2.4 (2.1-6.9); NEUTROPHILS % 49.1 % (38.7-80.0); PLATELET COUNT 285 x10e3/uL (140-360); RED BLOOD COUNT 4.65 x10e6/uL (4.3-5.7); RED CELL DISTRIBUTION WIDTH 12.8 % (11.7-14.4)
[2022-05-08 11:16] LABS: ALANINE AMINOTRANSFERASE 21 IU/L (0-55); ALBUMIN 4.5 g/dL (3.5-5.0); ALBUMIN/GLOBULIN RATIO 1.4 (0.8-2.0); ALKALINE PHOSPHATASE 56 IU/L (40-150); ANION GAP 17.3 mmol/L (8-16); BLOOD UREA NITROGEN 15 mg/dL (7-26); BUN/CREATININE RATIO 13 (6-25); CALCIUM 9.3 mg/dL (8.4-10.2); CARBON DIOXIDE 25 mmol/L (22-29); CHLORIDE 104 mmol/L (98-107); CREATINE KINASE 192 IU/L (30-200); CREATININE, SERUM 1.14 mg/dL (0.72-1.25); GLUCOSE 100 mg/dL (74-118); POTASSIUM 4.3 mmol/L (3.5-5.1); SODIUM 142 mmol/L (136-145)
[2022-05-08] MEDS ORDERED: PANTOPRAZOLE SO40 MG PO (12:40)
[2022-05-08 12:43] VITALS: BP 114/83
[2022-05-08] MEDS ORDERED: COLESTIPOL HCL1 GM PO (14:44)
== END 2022-05-08 12:50 | disposition home or self-care (01) ==
LOC: ER 10:20
DX: R07.89 Other chest pain (principal); K21.9 Gastro-esophageal reflux disease without esophagitis; K44.9 Diaphragmatic hernia without obstruction or gangrene; F17.200 Nicotine dependence, unspecified, uncomplicated
CPT/HCPCS: 36415; 71045; 80053; 82550; 82553; 84484; 85025; 93005; 99284; C9113; J1885; J7030

== ENCOUNTER → 2022-05-10 | Day surgery (SDC) | payer OTHER ==
[~2022-05-10] MED LIST changes: +COLESTIPOL HCL1 GM PO; +FENTANYL CITRATE/PF 100MCG/2 ML INJ ONE; +HYOSCYAMINE SULFATE 0.5 MG/ML INJ ONE; +METOCLOPRAMIDE HCL 10 MG/2ML VIAL ONE; +MIDAZOLAM HCL 2 MG/2 ML VIAL ONE; +PROPOFOL IV EMULSION 10 MG/ML 20 ML VIAL ONE
[2022-05-10 09:24] VITALS: BP 122/93
== END | disposition home or self-care (01) ==
LOC: OR 05:54
PROVIDERS: ATTEND Internal Medicine Gastroenterology
DX: K51.50 Left sided colitis without complications (principal); Z86.010 Personal history of colon polyps; K29.50 Unspecified chronic gastritis without bleeding; K21.00 Gastro-esophageal reflux disease with esophagitis, without bleeding; K31.9 Disease of stomach and duodenum, unspecified; K22.89 Other specified disease of esophagus; K28.9 Gastrojejunal ulcer, unspecified as acute or chronic, without hemorrhage or perforation; K44.9 Diaphragmatic hernia without obstruction or gangrene; K62.89 Other specified diseases of anus and rectum; K64.8 Other hemorrhoids; Z71.3 Dietary counseling and surveillance; R05.9 Cough, unspecified; Z72.0 Tobacco use; Z68.31 Body mass index [BMI] 31.0-31.9, adult
CPT/HCPCS: 43239; 43450; 45380; 83630; 83993; 86140; 86256; 86671; 87045; 87177; 87324; 87328; 87449; C9113; J1980; J2250; J2704; J2765; J3010; 45378

== ENCOUNTER → 2022-07-03 | Outpatient (CLI) | payer OTHER ==
[~2022-07-03] MED LIST changes: -FENTANYL CITRATE/PF 100MCG/2 ML INJ ONE; -HYOSCYAMINE SULFATE 0.5 MG/ML INJ ONE; -METOCLOPRAMIDE HCL 10 MG/2ML VIAL ONE; -MIDAZOLAM HCL 2 MG/2 ML VIAL ONE; -PROPOFOL IV EMULSION 10 MG/ML 20 ML VIAL ONE
== END ==
LOC: DX 08:42
PROVIDERS: ATTEND Surgery
DX: K21.9 Gastro-esophageal reflux disease without esophagitis (principal); K44.9 Diaphragmatic hernia without obstruction or gangrene
CPT/HCPCS: 74246

== ENCOUNTER 2022-09-24 09:56 | Inpatient (IN) | payer OTHER ==
[2022-09-21 08:12] LABS: BASOPHILS # (AUTO) 0.1 (0.0-0.1); EOSINOPHILS # (AUTO) 0.1 (0.0-0.4); EOSINOPHILS % 2.4 % (0.0-6.0); HEMATOCRIT 46.4 % (38.2-49.6); HEMOGLOBIN 14.7 g/dL (14.0-18.0); LYMPHOCYTES % 40.9 % (18.0-39.1); MEAN CORPUSCULAR HEMOGLOBIN 32.9 pg (28-32); MEAN CORPUSCULAR HGB CONC 31.7 g/dL (31-35); MEAN CORPUSCULAR VOLUME 103.8 fL (81-99); MONOCYTES # (AUTO) 0.6 (0.2-0.8); MONOCYTES % 11.9 % (4.4-11.3); NEUTROPHILS # (AUTO) 2.2 (2.1-6.9); NEUTROPHILS % 43.6 % (38.7-80.0); PLATELET COUNT 258 x10e3/uL (140-360); RED BLOOD COUNT 4.47 x10e6/uL (4.3-5.7); RED CELL DISTRIBUTION WIDTH 12.8 % (11.7-14.4)
[2022-09-21 08:53] LABS: ANION GAP 13.9 mmol/L (8-16); BLOOD UREA NITROGEN 15 mg/dL (7-26); BUN/CREATININE RATIO 14 (6-25); CALCIUM 8.9 mg/dL (8.4-10.2); CARBON DIOXIDE 23 mmol/L (22-29); CHLORIDE 107 mmol/L (98-107); CREATININE, SERUM 1.09 mg/dL (0.72-1.25); GLUCOSE 100 mg/dL (74-118); POTASSIUM 3.9 mmol/L (3.5-5.1); SODIUM 140 mmol/L (136-145)
[~2022-09-24] VITALS: Ht 175.3 cm; Wt 93.5 kg
[2022-09-24] MEDS ORDERED: BUPIVACAINE 0.5%/EPI 30 ML SDV INJ ONE (12:26)
[2022-09-24] MEDS ORDERED: ONDANSETRON HCL INJ 2MG/ML 2ML 2 MG/ML VIAL ONE (12:48)
[2022-09-24] MEDS ORDERED: SEVOFLURANE INHAL SOLN 250 ML PEN BTL ONE (12:48)
[2022-09-24] MEDS ORDERED: ROCURONIUM BROMIDE 10 MG/ML 5ML VIAL IV ONE (12:48)
[2022-09-24] MEDS ORDERED: NEOSTIGMINE 1 MG/ML 10ML VIAL ONE (12:48)
[2022-09-24] MEDS ORDERED: METOCLOPRAMIDE HCL 10 MG/2ML VIAL ONE (12:48)
[2022-09-24] MEDS ORDERED: POVIDONE IODINE 0.05% 0.05 % ML PO ONE (12:48)
[2022-09-24] MEDS ORDERED: PROPOFOL IV EMULSION 10 MG/ML 20 ML VIAL ONE (12:48)
[2022-09-24] MEDS ORDERED: SUCCINYLCHOLINE CHLORIDE 20 MG/ML 10ML VIAL ONE (12:48)
[2022-09-24] MEDS ORDERED: DEXAMETHASONE SOD PHOS INJ 4 MG/ML SDV ONE (12:48)
[2022-09-24] MEDS ORDERED: LIDOCAINE HCL 2% LOCAL INJ 5 ML SDV VIAL INJ ONE (12:48)
[2022-09-24] MEDS ORDERED: MIDAZOLAM HCL 2 MG/2 ML VIAL ONE (12:58)
[2022-09-24] MEDS ORDERED: FENTANYL CITRATE/PF 100MCG/2 ML INJ ONE (12:58)
[2022-09-24] MEDS ORDERED: ONDANSETRON HCL INJ 2MG/ML 2ML 2 MG/ML VIAL IV PRN (14:45)
[2022-09-24 15:53] VITALS: BP 138/89
[2022-09-24 16:00] VITALS: BP 138/89
[2022-09-24] MEDS: SODIUM CHLORIDE 0.9% 250ML IRRIG IR SCH ×3 (16:00→21:44)
[2022-09-24] MEDS: DEXTROSE 5%/LACTATED RINGERS 1,000 ML IV SCH (16:00)
[2022-09-24] MEDS ORDERED: ACETAMINOPHEN 1000 MG/100 ML IV PRN (18:00)
[2022-09-24 21:47] VITALS: BP 127/92
[2022-09-24 22:28] VITALS: BP 127/92
[2022-09-25] VITALS (10 sets, daily range): BP systolic 122–138; BP diastolic 87–102
[2022-09-25] MEDS: DEXTROSE 5%/LACTATED RINGERS 1,000 ML IV SCH ×3 (01:21→22:36)
[2022-09-25] MEDS: SODIUM CHLORIDE 0.9% 250ML IRRIG IR SCH ×4 (02:45→14:21)
[2022-09-25 05:17] LABS: BASOPHILS % 0.3 % (0.0-1.0); HEMATOCRIT 42.9 % (38.2-49.6); HEMOGLOBIN 13.6 g/dL (14.0-18.0); LYMPHOCYTES # (AUTO) 1.8 (1.0-3.2); LYMPHOCYTES % 18.3 % (18.0-39.1); MEAN CORPUSCULAR HEMOGLOBIN 32.2 pg (28-32); MEAN CORPUSCULAR HGB CONC 31.7 g/dL (31-35); MEAN CORPUSCULAR VOLUME 101.4 fL (81-99); MONOCYTES # (AUTO) 0.9 (0.2-0.8); MONOCYTES % 9.6 % (4.4-11.3); NEUTROPHILS # (AUTO) 6.9 (2.1-6.9); NEUTROPHILS % 71.6 % (38.7-80.0); PLATELET COUNT 284 x10e3/uL (140-360); RED BLOOD COUNT 4.23 x10e6/uL (4.3-5.7); RED CELL DISTRIBUTION WIDTH 12.4 % (11.7-14.4)
[2022-09-25 05:38] LABS: ANION GAP 13.1 mmol/L (8-16); CALCIUM 8.8 mg/dL (8.4-10.2); CREATININE, SERUM 0.96 mg/dL (0.72-1.25); POTASSIUM 4.1 mmol/L (3.5-5.1)
[2022-09-25] MEDS: HYDROMORPHONE 1MG/1ML INJ IV PRN ×2 (06:27→19:51)
[2022-09-25] MEDS ORDERED: ACETAMINOPHEN 1000 MG/100 ML IV PRN (21:30)
[2022-09-26 05:42] LABS: BASOPHILS # (AUTO) 0.1 (0.0-0.1); BASOPHILS % 0.9 % (0.0-1.0); EOSINOPHILS # (AUTO) 0.1 (0.0-0.4); EOSINOPHILS % 2.2 % (0.0-6.0); HEMATOCRIT 40.9 % (38.2-49.6); LYMPHOCYTES # (AUTO) 1.8 (1.0-3.2); LYMPHOCYTES % 28.4 % (18.0-39.1); MEAN CORPUSCULAR HEMOGLOBIN 32.6 pg (28-32); MEAN CORPUSCULAR HGB CONC 31.8 g/dL (31-35); MEAN CORPUSCULAR VOLUME 102.5 fL (81-99); MONOCYTES # (AUTO) 0.6 (0.2-0.8); MONOCYTES % 9.9 % (4.4-11.3); NEUTROPHILS # (AUTO) 3.8 (2.1-6.9); NEUTROPHILS % 58.3 % (38.7-80.0); PLATELET COUNT 241 x10e3/uL (140-360); RED BLOOD COUNT 3.99 x10e6/uL (4.3-5.7); RED CELL DISTRIBUTION WIDTH 12.8 % (11.7-14.4)
[2022-09-26 06:00] LABS: ANION GAP 10.8 mmol/L (8-16); CALCIUM 8.7 mg/dL (8.4-10.2); CREATININE, SERUM 0.97 mg/dL (0.72-1.25); POTASSIUM 3.8 mmol/L (3.5-5.1)
[2022-09-26] MEDS: DEXTROSE 5%/LACTATED RINGERS 1,000 ML IV SCH ×2 (07:40→15:51)
[2022-09-26 08:00] VITALS: BP 123/91
[2022-09-26] MEDS ORDERED: ACETAMINOPHEN 325 MG TAB PO PRN (09:15)
[2022-09-26 11:32] VITALS: BP 123/88
[2022-09-26 15:49] VITALS: BP 129/95
== END 2022-09-26 18:23 | disposition home or self-care (01) | DRG 328 ==
LOC: OR 09:56 → PACU V 14:32 → MED/SURG 15:50
PROVIDERS: ADMIT Surgery; ATTEND Surgery
PROC: 0BQT4ZZ Repair Diaphragm, Percutaneous Endoscopic Approach (ICD-10-PCS; principal; 2022-09-24 11:52)
PROC: 0DV44ZZ Restriction of Esophagogastric Junction, Percutaneous Endoscopic Approach (ICD-10-PCS; 2022-09-24 11:52)
DX: K44.9 Diaphragmatic hernia without obstruction or gangrene (principal); K21.9 Gastro-esophageal reflux disease without esophagitis
CPT/HCPCS: 0223U; 36415; 80048; 85025; 94799; 96360; J0330; J0690; J1100; J1170; J2001; J2250; J2405; J2710; J2765; J3010

== ENCOUNTER 2022-12-19 19:37 | Emergency (ER) | payer OTHER ==
[~2022-12-19] VITALS: Ht 175.3 cm; Wt 93.4 kg
[2022-12-19] MEDS ORDERED: IBUPROFEN 600 MG TAB PO STA (20:17)
[2022-12-19] MEDS ORDERED: SODIUM CHLORIDE 0.9% 1000ML 1,000 ML ONE (20:18)
[2022-12-19] MEDS ORDERED: IBUPROFEN 600 MG TAB ONE (20:18)
[2022-12-19] MEDS ORDERED: SODIUM CHLORIDE 0.9% 1000ML 1,000 ML IV ONE (20:30)
[2022-12-19 20:34] LABS: BASOPHILS % 0.5 % (0.0-1.0); EOSINOPHILS % 0.2 % (0.0-6.0); HEMATOCRIT 43.3 % (38.2-49.6); HEMOGLOBIN 14.6 g/dL (14.0-18.0); LYMPHOCYTES # (AUTO) 0.7 (1.0-3.2); LYMPHOCYTES % 7.6 % (18.0-39.1); MEAN CORPUSCULAR HEMOGLOBIN 32.7 pg (28-32); MEAN CORPUSCULAR HGB CONC 33.7 g/dL (31-35); MEAN CORPUSCULAR VOLUME 96.9 fL (81-99); MONOCYTES # (AUTO) 0.4 (0.2-0.8); NEUTROPHILS # (AUTO) 7.7 (2.1-6.9); NEUTROPHILS % 86.2 % (38.7-80.0); PLATELET COUNT 236 x10e3/uL (140-360); RED BLOOD COUNT 4.47 x10e6/uL (4.3-5.7); RED CELL DISTRIBUTION WIDTH 13.6 % (11.7-14.4)
[2022-12-19 20:53] LABS: ALBUMIN 4.5 g/dL (3.5-5.0); ALBUMIN/GLOBULIN RATIO 1.5 (0.8-2.0); ANION GAP 16.1 mmol/L (8-16); CALCIUM 9.1 mg/dL (8.4-10.2); CREATININE, SERUM 1.21 mg/dL (0.72-1.25); POTASSIUM 4.1 mmol/L (3.5-5.1)
[2022-12-19] MEDS ORDERED: ONDANSETRON ODT4 MG PO (21:21)
[2022-12-19 21:25] VITALS: BP 110/74
== END 2022-12-19 21:43 | disposition home or self-care (01) ==
LOC: ER 19:59
DX: R50.9 Fever, unspecified (principal); U07.1 COVID-19; R19.7 Diarrhea, unspecified; K21.9 Gastro-esophageal reflux disease without esophagitis
CPT/HCPCS: 36415; 80053; 83605; 83690; 85025; 87040; 99284; J7030; U0002

== ENCOUNTER → 2025-05-14 | Day surgery (SDC) | payer OTHER ==
[~2025-05-14] MED LIST changes: +DEXAMETHASONE SOD PHOS INJ 4 MG/ML SDV ONE; +FENTANYL CITRATE/PF 100MCG/2 ML INJ ONE; +HYOSCYAMINE SULFATE 0.5 MG/ML INJ ONE; +LACTATED RINGER'S 1,000 ML ONE; +LIDOCAINE HCL 2% LOCAL INJ 5 ML SDV VIAL INJ ONE; +METOCLOPRAMIDE HCL 10 MG/2ML VIAL ONE; +MIDAZOLAM HCL 2 MG/2 ML VIAL ONE; +ONDANSETRON HCL INJ 2MG/ML 2ML 2 MG/ML VIAL ONE; +ONDANSETRON ODT4 MG PO; +PROPOFOL IV EMULSION 50 ML IV ONE; +ROCURONIUM BROMIDE 1 ML IV ONE; +SUCCINYLCHOLINE CHLORIDE 20 MG/ML 10ML VIAL ONE
[2025-05-14 15:40] VITALS: BP 137/77; PULSE 95; RESP 16; O2SAT 97
== END | disposition home or self-care (01) ==
LOC: OR 11:40
PROVIDERS: ATTEND Internal Medicine Gastroenterology
DX: K29.50 Unspecified chronic gastritis without bleeding (principal); K63.5 Polyp of colon; K29.80 Duodenitis without bleeding; K52.9 Noninfective gastroenteritis and colitis, unspecified; K20.90 Esophagitis, unspecified without bleeding; K44.9 Diaphragmatic hernia without obstruction or gangrene; K21.9 Gastro-esophageal reflux disease without esophagitis; K91.89 Other postprocedural complications and disorders of digestive system; K31.89 Other diseases of stomach and duodenum; K63.3 Ulcer of intestine; K64.8 Other hemorrhoids; Z71.89 Other specified counseling; Y83.8 Other surgical procedures as the cause of abnormal reaction of the patient, or of later complication, without mention of misadventure at the time of the procedure; Z68.28 Body mass index [BMI] 28.0-28.9, adult; Z71.3 Dietary counseling and surveillance
CPT/HCPCS: 43239; 45380; J0330; J1100; J1980; J2003; J2250; J2405; J2470; J2704; J2765; J3010; J7121; 45378; 45385